=== PATIENT | female | born 1990 | race Caucasian/White ===

== ENCOUNTER 2018-06-09 20:17 | Emergency (ER) | payer MEDICAID ==
[2018-06-09] MEDS ORDERED: Amoxicillin/Clavulanate K 875-125 MG Tab PO ONE (21:28)
[2018-06-09] MEDS: Diphtheria,Pertussis(Acell),Tetanus Vaccine 0.5 ML SDV IM ONE ×2 (21:35→21:39)
--- NOTE | 2018-06-09 21:36 | EDM.PDOC ---
ED HPI GENERAL MEDICAL PROBLEM - General Chief Complaint: Bite:Animal, Insect Stated Complaint: CAT BITE TO RIGHT PINKY FINGER Time Seen by Provider: 06/09/18 21:10 Source of Information: Reports: Patient History Limitations: Reports: No Limitations - History of Present Illness INITIAL COMMENTS - FREE TEXT/NARRATIVE: c/o cat bite pt pulled the family cat off of her child, cat bite her R 5th finger, mild soreness now, did bleed may have had tetanus with last preg 2y ago, has not had one with current , at 29w gestation, is due for a TDaP booster after 27w with this next OB appointment on 06/21 will give Augmentin Right pinky finger Pain Score (Numeric/FACES): 2 - Related Data Allergies Allergy/AdvReac Type Severity Reaction Status Date / Time No Known Allergies Allergy Verified 06/09/18 20:37 Home Meds: Home Meds Amoxicillin/Potassium Clav [Augmentin 875-125 Tablet] 1 each PO BID #6 tablet [Rx] Vits #93/Iron Fum/FA [ Formula Tablet] 1 each PO DAILY [History] Past Medical History RUG CLEANER History: Reports: , Spontaneous Other RUG CLEANER History: Endocrine/Metabolic History: Reports: Diabetes, Gestational Other Endocrine/Metabolic History: Diet controlled - Past Surgical History HEENT Surgical History: Reports: Tonsillectomy Female Surgical History: Reports: Section Social & Family History - Family History Family Medical History: Noncontributory - Tobacco Use Smoking Status *Q: Former Smoker Used Tobacco, but Quit: Yes Month/Year Tobacco Last Used: 2016 - Caffeine Use Caffeine Use: Reports: Coffee - Recreational Drug Use Recreational Drug Use: No ED ROS GENERAL - Review of Systems Review Of Systems: See Below Constitutional: Reports: No Symptoms HEENT: Reports: No Symptoms Respiratory: Reports: No Symptoms Cardiovascular: Reports: No Symptoms Endocrine: Reports: No Symptoms GI/Abdominal: Reports: No Symptoms : Reports: No Symptoms Musculoskeletal: Reports: No Symptoms Skin: Reports: Wound Neurological: Reports: No Symptoms Psychiatric: Reports: No Symptoms Hematologic/Lymphatic: Reports: No Symptoms Immunologic: Reports: No Symptoms ED EXAM, ANIMAL BITE - Physical Exam Exam: See Below Exam Limited By: No Limitations General Appearance: Alert, WD/WN, No Apparent Distress Skin Exam: Other (R 5th finger with a single 2 x 2 mm ecchymotic area with no visible break in skin altho did bleed earlier, 4 mm distal to PIP, lateral aspect, NT, no swell, FROM of DIP) Course - Vital Signs Last Recorded V/S: Last Vital Signs Temp 36.4 C 06/09/18 20:20 Pulse 89 06/09/18 20:20 Resp 16 06/09/18 20:20 BP 114/74 06/09/18 20:20 Pulse Ox 94 L 06/09/18 20:20 - Orders/Labs/Meds Orders: Active Orders 24 hr Category Date Time Status Vaccines to be Administered [RC] PER UNIT ROUTINE Care 06/09/18 21:29 Ordered Amoxicillin/Clavulanate K [Augmentin 875 MG/125 MG] Med 06/09/18 21:28 Once 1 tab PO ONETIME ONE Diphth,Pertuss(Acell),Tet Vac [Adacel] Med 06/09/18 21:29 Once 0.5 ml IM .ONCE ONE Departure - Departure Time of Disposition: 21:33 Disposition: Home, Self-Care 01 Condition: Good Clinical Impression: Cat bite of finger, Third trimester - Discharge Information *PRESCRIPTION DRUG MONITORING PROGRAM REVIEWED*: Not Applicable *COPY OF PRESCRIPTION DRUG MONITORING REPORT IN PATIENT ESTEVAN: Not Applicable Prescriptions: Amoxicillin/Potassium Clav [Augmentin 875-125 Tablet] 1 each PO BID #6 tablet Instructions: Animal Bite Referrals: PCP,None [Primary Care Provider] - Additional Instructions: To prevent infection, take Augmentin 875/125 mg 1 tab 2 times a day for 3 days. As it is possible to get infection despite being on an antibiotic, see a physician the same day for any increase in redness, swelling, pain, warmth, fever or drainage. For pain, as needed, take acetaminophen 500 mg 2 tab 4 times a day. If doing well, see your physician on 06/21 as scheduled. - My Orders Last 24 Hours: My Active Orders 06/09/18 21:28 Amoxicillin/Clavulanate K [Augmentin 875 MG/125 MG] 1 tab PO ONETIME ONE 06/09/18 21:29 Vaccines to be Administered [RC] PER UNIT ROUTINE Diphth,Pertuss(Acell),Tet Vac [Adacel] 0.5 ml IM .ONCE ONE - Assessment/Plan Last 24 Hours: My Active Orders 06/09/18 21:28 Amoxicillin/Clavulanate K [Augmentin 875 MG/125 MG] 1 tab PO ONETIME ONE 06/09/18 21:29 Vaccines to be Administered [RC] PER UNIT ROUTINE Diphth,Pertuss(Acell),Tet Vac [Adacel] 0.5 ml IM .ONCE ONE
== END 2018-06-09 21:48 | disposition home or self-care (01) ==
LOC: FB.ED 20:17
DX: O9A.213 Injury, poisoning and certain other consequences of external causes complicating pregnancy, third trimester (principal); S61.256A Open bite of right little finger without damage to nail, initial encounter; W55.01XA Bitten by cat, initial encounter; Z87.891 Personal history of nicotine dependence; Z3A.27 27 weeks gestation of pregnancy
CPT/HCPCS: 99283; A9270; 90715